=== PATIENT | male | born 1945 | race Caucasian/White ===

== ENCOUNTER → 2020-11-02 | Outpatient (CLI) | payer MEDICARE, OTHER ==
--- NOTE | 2020-11-02 16:34 | RAD ---
CLINICAL HISTORY: Reason: EPIDIDYMITIS ORCHITIS / Spl. Instructions: / History: COMPARISON: None available. TECHNIQUE: Ultrasound images of the scrotum was performed with garcia-scale and color doppler. FINDINGS: The right testis measures 4.1 x 3.2 x 2.3 cm. The left testis measures 3.7 x 2.5 x 3.2 cm. There is no intratesticular abnormality. Testicular vascularity is symmetric and within normal limit s. The epididymis is normal in appearance bilaterally. Moderate right greater than left hydroceles. There are bilateral pampiniform plexus vessels which efra sure just greater than 3 mm with Valsalva. IMPRESSION: Moderate right greater than left hydrocele. Left greater than right mild varicoceles. Electronically signed by: Escobar Barber MD (11/02/2020 4:32 PM) [facility]
== END ==
LOC: US 10:48
PROVIDERS: ATTEND Specialist
DX: I86.1 Scrotal varices (principal); N45.1 Epididymitis; N43.3 Hydrocele, unspecified
CPT/HCPCS: 76870